=== PATIENT | male | born 1960 | race Caucasian/White ===

== ENCOUNTER 2017-09-20 21:18 | Emergency (ER) | payer OTHER ==
[~2017-09-20] VITALS: Ht 180.3 cm; Wt 79.4 kg
[~2017-09-20 21:18] MED LIST: ENDOCET 325 MG-1 TA1 PO; MULTIVITAMIN1 TAB PO; VITAMIN B COMPL1 CAP PO
[2017-09-20 21:26] VITALS: BP 133/79
--- NOTE | 2017-09-20 22:20 | ED GENERAL ADULT ---
History of Present Illness General Chief Complaint: General Adult Stated Complaint: RABIES EXPOSURE Source: patient, family Exam Limitations: no limitations Vital Signs & Intake/Output Vital Signs & Intake/Output Vital Signs Date Time Temp Pulse Resp B/P B/P Pulse O2 O2 Flow FiO2 Mean Ox Delivery Rate 09/206 98.5 52 18 133/79 96 Room Air Allergies Coded Allergies: MDX - Codeine (CODEINE) (N/V 02/12/15) Reconcile Medications Multivitamin (Multiple Vitamins) 1 TAB TAB 1 TAB PO DAILY SUPPLEMENT ( Reported) OXYCODONE HCL/ACETAMINOPHEN (Endocet 5-325 Tablet) 1 TAB TAB 1 TAB PO Q6H PRN PAIN Vitamin B Complex 1 CAP CAP 1 CAP PO DAILY SUPPLEMENT (Reported) Triage Note: PT TO TRIAGE S/P DOG THAT GOT BIT BY A RACCOON WEDNESDAY AND ALL MEMBERS OF FAMILY TOUCHED THE DOG. ?RABIES EXPOSURE PER PT. PT DENIES ANY COMPLAINTS. Triage Nurses Notes Reviewed? yes Onset: Abrupt Duration: day(s): (3), better, continues in ED Timing: single episode today Injury Environment: home Severity: mild No Modifying Factors: none HPI: 56-year-old male with no medical history presents for evaluation of possible rabies exposure. Patient reports that his dog was bitten in the right ear 3 days ago by a raccoon. The raccoon scurried off and they were not able to quarantine or capture. The dog had a wound on his ear that the patient and his family cared for and subsequently got some of the dogs blood on the hands. There is no exposure to mucous membranes or eyes. The dog never bit any of the family members. The dog is a family pet was immediately taken to the vet. The dog is up-to-date on all vaccines and received a booster shot. The dog has been behaving normally since and is quarantined now. Patient's safety and his family are feeling well and have no concerns other than a possible need for a rabies vaccine. (Brent Herrera) Past History Travel History Traveled to [place] past 21 day No Medical History Any Pertinent Medical History? see below for history Neurological: NONE EENT: NONE Cardiovascular: NONE Respiratory: NONE Gastrointestinal: NONE Hepatic: NONE Renal: NONE Musculoskeletal: gout Psychiatric: NONE Endocrine: NONE Blood Disorders: NONE Cancer(s): NONE METER SETTER/Reproductive: NONE Tetanus Vaccine: 02/12/15 Surgical History Surgical History: non-contributory Psychosocial History What is your primary language Haitian Tobacco Use: Never used ETOH Use: denies use Family History Hx Contributory? No (Brent Herrera) Review of Systems Review of Systems Constitutional: Reports: no symptoms. EENTM: Reports: no symptoms. Respiratory: Reports: no symptoms. Cardiovascular: Reports: no symptoms. GI: Reports: no symptoms. Genitourinary: Reports: no symptoms. Musculoskeletal: Reports: no symptoms. Skin: Reports: no symptoms. Neurological/Psychological: Reports: no symptoms. Hematologic/Endocrine: Reports: no symptoms. Immunologic/Allergic: Reports: no symptoms. All Other Systems: Reviewed and Negative (Brent Herrera) Physical Exam Physical Exam General Appearance: well developed/nourished, no apparent distress, alert, awake Head: atraumatic, normal appearance Eyes: Bilateral: normal appearance, EOMI. Ears, Nose, Throat: hearing grossly normal Neck: normal inspection, supple, full range of motion Respiratory: no respiratory distress Back: normal inspection Extremities: normal inspection, normal range of motion, no edema Neurologic/Psych: no motor/sensory deficits, awake, alert, oriented x 3, normal gait Skin: intact, normal color, warm/dry Core Measures ACS in differential dx? No CVA/TIA Diagnosis: No Sepsis Present: No Sepsis Focused Exam Completed? No (Brent Herrera) Progress Differential Diagnoses I considered the following diagnoses in my evaluation of the patient: [Rabies exposure,] Plan of Care: Patient denies ever being bit by a dog. There is no contact of animal bladder saliva with mucous membranes or eyes. The dog has been quarantined and is behaving normally. Patient currently does not meet criteria for rabies immunoglobulin or vaccine. Educated patient about rabies exposure in when it is appropriate to vaccinate. Since there was no broken skin or contact with mucous membranes patient will not be vaccinated. Advised to continue to quarantine the dog for 2 weeks monitor for signs and symptoms of rabies discussed with these are. Return with any concerns. Patient agrees the plan. Case discussed with Dr. Butts, HE agrees. Initial ED EKG: none (Brent Herrera) Departure Departure Disposition: HOME OR SELF CARE Condition: Stable Clinical Impression Primary Impression: Deficient knowledge of rabies contact Referrals: Kaci TREJO,Ventura Dc (PCP/Family) Additional Instructions: Continue to quarantine YOUR dog for 2 weeks. Return to the emergency department immediately if the animal exhibits any signs or symptoms of suspected rabies. Departure Forms: Customer Survey General Discharge Information (Brent Herrera) PA/MANAGER CLIENT Co-Sign Statement Statement: ED Attending supervision documentation- [] I saw and evaluated the patient. I have also reviewed all the pertinent lab results and diagnostic results. I agree with the findings and the plan of care as documented in the PA's/MANAGER CLIENT's documentation. [X] I have reviewed the ED Record and agree with the PA's/MANAGER CLIENT's documentation. [] Additions or exceptions (if any) to the PAs/MANAGER CLIENT's note and plan are summarized below: [] (Beckie TREJO,René Douglas) Critical Care Note Critical Care Note Critical Care Time: non-applicable (Brent Herrera)
== END 2017-09-20 22:26 ==
LOC: ERH 21:18
DX: Z71.1 Person with feared health complaint in whom no diagnosis is made (principal)
CPT/HCPCS: 99281